=== PATIENT | male | born 1965 | race Caucasian/White ===

== ENCOUNTER 2017-08-09 22:37 | Emergency (ER) | payer SELFPAY ==
[~2017-08-09] VITALS: Ht 170.2 cm; Wt 91.0 kg
[2017-08-09 22:45] VITALS: TEMP 98.3; Ht 170.2 cm; Wt 91.0 kg
[2017-08-09] MEDS ORDERED: SOD CHLORIDE 0.9% 500 ML IV STA (22:52)
[2017-08-09] MEDS ORDERED: ONDANSETRON 4 MG INJ IV STA (22:52)
[2017-08-09] MEDS ORDERED: morphine 4 MG/ML VIAL IV STA (22:52)
[2017-08-09 23:24] LABS: BASOPHILS % 0.2 % (0.0-2.0); EOSINOPHILS # 0.2 10^3/ul (0.0-0.5); EOSINOPHILS % 3.2 % (0.0-7.0); HEMATOCRIT 34.6 % (42.0-52.0); HEMOGLOBIN 11.6 g/dl (14.0-18.0); LYMPHOCYTES # 1.5 10^3/ul (0.8-2.9); LYMPHOCYTES % 27.4 % (15.0-51.0); MEAN CORPUSCULAR HEMOGLOBIN 29.1 pg (29.0-33.0); MEAN CORPUSCULAR HGB CONC 33.5 g/dl (32.0-37.0); MEAN CORPUSCULAR VOLUME 86.7 fl (82.0-101.0); MEAN PLATELET VOLUME 9.7 fl (7.4-10.4); MONOCYTE # 0.5 10^3/ul (0.3-0.9); MONOCYTES % 9.2 % (0.0-11.0); NEUTROPHILS % 59.8 % (39.0-77.0); PLATELET COUNT 229 10^3/UL (140-415); RED BLOOD COUNT 3.99 10^6/ul (4.70-6.10); RED CELL DISTRIBUTION WIDTH 12.4 % (11.5-14.5); WHITE BLOOD COUNT 5.3 10^3/ul (4.8-10.8)
[2017-08-09 23:35] VITALS: BP 148/99; PULSE 92; RESP 15
[2017-08-09 23:38] LABS: INR 0.95; PARTIAL THROMBOPLASTIN TIME 30.6 Sec (25.0-35.0); PROTIME 12.7 Sec (12.2-14.2)
[2017-08-09 23:40] LABS: ALBUMIN 3.5 g/dl (3.3-4.9); ALBUMIN/GLOBULIN RATIO 1.09; CALCIUM 8.6 mg/dl (8.4-10.2); CREATININE 0.76 mg/dl (0.61-1.24); POTASSIUM 3.9 mmol/L (3.5-5.1); TOTAL PROTEIN 6.7 g/dl (6.1-8.1)
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
== END 2017-08-10 01:15 | disposition home or self-care (01) ==
LOC: E/R 22:37
DX: R04.0 Epistaxis (principal); R40.2252 Coma scale, best verbal response, oriented, at arrival to emergency department; R40.2142 Coma scale, eyes open, spontaneous, at arrival to emergency department; R40.2362 Coma scale, best motor response, obeys commands, at arrival to emergency department; Z87.891 Personal history of nicotine dependence
CPT/HCPCS: 36415; 80053; 83690; 85025; 85610; 85730; 96374; 96375; 99284; J2270; J2405; J7040